=== PATIENT | male | born 1960 ===

== ENCOUNTER 2022-06-26 05:54 | Day surgery (SDC) | payer OTHER ==
[~2022-06-26] VITALS: Ht 185.4 cm; Wt 87.1 kg
[2022-06-26] MEDS ORDERED: PERCOCET 5-3251 EACH PO (09:50)
== END 2022-06-26 13:45 | disposition home or self-care (01) ==
LOC: CIR.AMB 05:54
PROVIDERS: ATTEND Surgery
DX: K64.4 Residual hemorrhoidal skin tags (principal); K64.8 Other hemorrhoids; K64.2 Third degree hemorrhoids; K59.09 Other constipation; Z86.16 Personal history of COVID-19; Z20.822 Contact with and (suspected) exposure to COVID-19